=== PATIENT | female | born 1955 | race Caucasian/White ===

== ENCOUNTER → 2016-08-11 | Day surgery (SDC) | payer OTHER ==
[~2016-08-11] MED LIST: ADVI200C5 PO; BIOT10TA PO; ESTR42.5V VAGINAL; INCOBOTULINUMTOXINA 100 UNITS VIAL IM ONE; LEVO88TA2 PO; LORA-361 PO; MILN50 PO; MULTTAB67 PO; NEXI40CA PO; SODIUM CHLORIDE 0.9% 10 ML VIAL ONE; SYNT112T PO; VITA400C2 PO; VITA500T PO; VITA500T4 PO; ZYRT10CA PO
--- NOTE | 2016-08-11 10:59 | M6 ---
cc: MOISES MORTON M.D. DATE 08/11/2016 DATE OF 1955 PROCEDURE Injection botulinum toxin type A (Xeomin) right trapezius and posterior cervical musculature PROCEDURE NOTE History and physical was completed and signed. Consent was signed. Procedure site was marked. Medications were listed and reconciled. Pain score was recorded. Allergies were noted. Time out was taken. Fluoroscopy time was recorded where applicable. Blood pressure cuff, pulse oximeter were applied. The patient was placed in the sitting position. The skin over the right trapezius and cervical area was prepped with alcohol. The areas of greatest spasticity were identified. A 27 gauge needle was used to inject a total of 150 units of Xeomin at six different locations corresponding to the areas of greatest spasticity. Following this, the patient was observed in recovery area with stable vital signs prior to being discharged. W. MD IMELDA Garza/UBALDO /10:26 AM /10:56 AM
== END | disposition home or self-care (01) ==
LOC: PHSDC 09:11
PROVIDERS: ATTEND Pain Medicine Interventional Pain Medicine
DX: G24.8 Other dystonia (principal); M54.2 Cervicalgia
CPT/HCPCS: 64616; J0588